=== PATIENT | male | born 1995 | race Caucasian/White ===

== ENCOUNTER → 2019-04-24 | Outpatient (CLI) | payer BC ==
[~2019-04-24] MED LIST: PREDNICOT20 MG PO
== END | disposition home or self-care (01) ==
LOC: US 06:30
DX: N49.2 Inflammatory disorders of scrotum (principal); R00.2 Palpitations; I86.1 Scrotal varices

== ENCOUNTER → 2020-01-15 | Outpatient (CLI) | payer BC | END | disposition home or self-care (01) | LOC: US 07:07 | DX: K52.9 Noninfective gastroenteritis and colitis, unspecified (principal); R10.11 Right upper quadrant pain; K59.00 Constipation, unspecified ==

== ENCOUNTER → 2020-11-23 | Outpatient (CLI) | payer OTHER | END | disposition home or self-care (01) | LOC: RESCLI 15:02 | PROVIDERS: ATTEND Internal Medicine Nephrology | DX: R00.0 Tachycardia, unspecified (principal); R19.7 Diarrhea, unspecified; Q04.4 Septo-optic dysplasia of brain; Z79.899 Other long term (current) drug therapy; Z98.890 Other specified postprocedural states ==

== ENCOUNTER 2023-09-30 10:29 | Emergency (ER) | payer OTHER ==
[~2023-09-30] VITALS: Ht 170.1 cm; Wt 54.0 kg
== END 2023-09-30 12:06 | disposition home or self-care (01) ==
LOC: ED 10:29
DX: B34.9 Viral infection, unspecified (principal); Z20.822 Contact with and (suspected) exposure to COVID-19

== ENCOUNTER 2025-05-31 17:06 | Emergency (ER) | payer OTHER ==
[~2025-05-31] VITALS: Ht 170.1 cm; Wt 52.2 kg
[2025-05-31 18:28] LABS: BILIRUBIN Negative (Negative); BLOOD Negative (Negative); CLARITY Clear (Clear); COLOR Yellow (Yellow); KETONE 2+ (Negative); LEUKO ESTERASE Trace (Negative); NITRITE Negative (Negative); PH 5.5 (4.5-8.0); SPECIFIC GRAVITY 1.025 (1.001-1.030); UROBILINOGEN 0.2 E.U./dl (0.0-1.0)
[2025-05-31 18:34] LABS: BACTERIA 1+; MUCOUS 2+; RBC 0-2 rbc/hpf (0-2)
[2025-05-31] MEDS ORDERED: metroNIDAZOLE 500 MG TAB PO ONE (18:45)
[2025-05-31] MEDS ORDERED: METRONIDAZOLE500 M1 PO (18:49)
== END 2025-05-31 18:47 | disposition home or self-care (01) ==
LOC: ED 17:06
PROVIDERS: Nurse Practitioner Family
DX: Z20.2 Contact with and (suspected) exposure to infections with a predominantly sexual mode of transmission (principal)